=== PATIENT | male | born 1970 | race African-American/Black ===

== ENCOUNTER 2020-09-13 01:38 | Emergency (ER) | payer MEDICAID ==
[2020-09-13 01:07] LABS: ABSOLUTE LYMPHOCYTES (AUTO) 0.9 10^3/uL (0.5-4.7); ABSOLUTE MONOCYTES (AUTO) 0.1 10^3/uL (0.1-1.4); ABSOLUTE NEUT (AUTO) 8.9 10^3/uL (1.7-8.2); BASOPHILS % (AUTO) 0.2 % (0-2); EOSINOPHILS % (AUTO) 0.3 % (0-6); HEMATOCRIT 39.3 % (37.9-51.0); HEMOGLOBIN 13.4 g/dL (13.5-17.0); LYMPHOCYTES % (AUTO) 8.8 % (13-45); MEAN CORPUSCULAR HEMOGLOBIN 29.8 pg (27.0-33.4); MEAN CORPUSCULAR VOLUME 88 fl (80-97); MONOCYTES % (AUTO) 0.9 % (3-13); PLATELET COUNT 265 10^3/uL (150-450); RED BLOOD COUNT 4.49 10^6/uL (4.35-5.55); RED CELL DISTRIBUTION WIDTH 14.3 % (11.5-14.0); SEGMENTED NEUTROPHILS % (AUTO) 89.8 % (42-78)
--- NOTE | 2020-09-13 01:25 | ER Document Report ---
ED General - General Chief Complaint: Probable Seizure Stated Complaint: POSSIBLE SEIZURE Primary Care Provider: LUCIANO CARDOZO [Primary Care Provider] - Follow up as needed - HPI Context: This is a 50-year-old male with a history of quadriplegia and reported seizure disorder that presents to the emergency department for evaluation of seizure activity. Patient's is at the bedside and relates history. states patient has a long history of problems with seizures and the seizures are triggered mainly by pain. states patient has been on Keppra and Vimpat in the past but patient was unable to tolerate the medications. Patient reportedly has history of UTIs. denies known Covid exposures. Further history is limited given that the patient is found to be shaking upon entering the room. mentioned that the patient was at the [facility] earlier tonight and missed his usual dose of extended release morphine. Associated symptoms: denies: Chest pain, Nonproductive cough, Productive cough, Nausea, Vomiting Exacerbated by: Other - See HPI Relieved by: Other - Pain medication Similar symptoms previously: Yes - Related Data Allergies/Adverse Reactions: vancomycin Allergy (Verified 09/13/20 01:50 EDT) Past Medical History - General Information source: Relative - Social History Smoking Status: Unknown if Ever Smoked Lives with: Spouse/Significant other Family History: Reviewed & Not Pertinent Review of Systems - Review of Systems Constitutional: No symptoms reported EENT: No symptoms reported Cardiovascular: No symptoms reported Respiratory: No symptoms reported Gastrointestinal: No symptoms reported Genitourinary: No symptoms reported Male Genitourinary: No symptoms reported Musculoskeletal: No symptoms reported Skin: No symptoms reported Hematologic/Lymphatic: No symptoms reported Neurological/Psychological: Seizure -: Yes All other systems reviewed and negative Physical Exam - Vital signs Vitals: Temp Resp BP Pulse Ox 98.3 F 22 H 153/91 H 98 09/13/20 01:59 EDT 09/13/20 01:59 EDT 09/13/20 01:59 EDT 09/13/20 01:59 EDT - Notes Notes: CONSTITUTIONAL [Vital signs reviewed, patient is shaking all of his extremities and moaning upon entering the room HEAD [Atraumatic, Normocephalic.] EYES [Eyes are normal to inspection, Conjunctiva are normal.] ENT [Ears normal to inspection, Nose examination normal, Mouth normal to inspection.] NECK [Normal ROM, No jugular venous distention, No meningeal signs, no carotid bruit.] RESPIRATORY CHEST [Chest is nontender, Breath sounds normal, No respiratory distress.] CARDIOVASCULAR [RRR, No murmurs, Normal S1 S2, No rub, No gallop.] ABDOMEN [Abdomen is nontender, No pulsatile masses, No other masses, Bowel sounds quiet, No distension, No peritoneal signs, No hernias.] UPPER EXTREMITY [Inspection normal, No cyanosis, No clubbing, No edema, 2+ radial pulses.] LOWER EXTREMITY [Inspection normal, No cyanosis, No clubbing, No edema, No calf tenderness, 2+ f emoral pulses.] NEURO Patient has generalized shaking in his extremities. Patient is nonverbal other than moaning SKIN [Skin is warm, Skin is dry, Skin is normal color.] PSYCHIATRIC Depressed affect. ] Course - Re-evaluation Re-evalutation: 09/13/20 04:44 Patient states he has had some improvement after receiving the pain medication. Patient is now awake and alert and appears to be in no acute distress. Results of ED MSE discussed with patient and patient's spouse. All questions were answered prior to discharge. Emergency signs and symptoms, reasons to return to the emergency department discussed with patient and patient's spouse. - Vital Signs Vital signs: Temp Pulse Resp BP Pulse Ox 98.3 F 18 135/81 H 97 09/13/20 01:59 EDT 09/13/20 03:01 09/13/20 03:01 09/13/20 03:39 - Laboratory Result Diagrams: 09/13/20 01:50 EST 09/13/20 01:50 EST Laboratory results interpreted by me: 09/13/20 01:08 EST Urine Protein 30 H Urine Blood LARGE H Urine Nitrite POSITIVE H Ur Leukocyte Esterase SMALL H - EKG Interpretation by Me Additional EKG results interpreted by me: 09/13/20 03:38 EKG obtained on 09/13/2020 at 00 42 hours was interpreted by this MD. Findings: Normal sinus rhythm, right 88, normal axis, GA interval within normal limits, P waves proceed QRS complexes, QRS complexes appear narrow, QTC 431, there are no obvious patterns of ST segment elevation, depression or reciprocal changes seen to suggest acute myocardial ischemia or infarction. No prior EKG is available for comparison. Impression normal sinus rhythm with nonspecific ST segments. Discharge - Discharge Clinical Impression: History of seizures, Chronic pain disorder UTI (urinary tract infection) Qualifiers: Urinary tract infection type: site unspecified Hematuria presence: with hematuria Qualified Code(s): N39.0 - Urinary tract infection, site not specified; R31.9 - Hematuria, unspecified Condition: Stable Disposition: HOME, SELF-CARE Instructions: Urinary Tract Infection ([facility]), Nitrofurantoin ([facility]) Additional Instructions: Return to the Emergency Department without delay if any worse. HOME CARE INSTRUCTIONS & INFORMATION: Thank you for choosing us for your medical needs. We hope you're satisfied with the care you received. After you leave, you must properly care for your problem and, at the same time, observe its progress. Any condition can change. Some illnesses can change rapidly over hours or days. If your condition worsens, return to the Emergency Department or see your physician promptly. ABOUT YOUR X-RAYS AND EKG'S: If you had an EKG or X-rays taken, they have been read by the Emergency Physician. The X-rays and EKG's will also be read by a Radiologist or Shuttle Car Operator within 24 hours. If discrepancies are noted, you will be notified by telephone. Please be certain the ED has a correct telephone number & address where you can be reached. Also, realize that some fractures or abnormalities do not show up on initial X-rays. If your symptoms continue, see your physician. ABOUT YOUR LABORATORY TEST: If you had laboratory tests, the results have been reviewed by the Emergency Physician. Some test results (for example cultures) may not be available for several days. You will be contacted if any test result shows you need additional treatment. Please be certain the ED has a correct telephone number and address where you can be reached. ABOUT YOUR MEDICATIONS: You will receive instructions on how to take your med icine on the prescription label you receive. Additional information may be provided by the Pharmacy. If you have questions afterwards, call the ED for clarification or further instructions. Some prescribed medications may cause drowsiness. Do not perform tasks such as driving a car or operating machinery without consulting your Pharmacist. If you feel you need a refill of pain medication, your condition will need re-evaluation. Please do not call for a refill of any medication. ABOUT YOUR SIGNATURE: Signature of this document acknowledges to followin. Understanding that you received emergency treatment and that you may be released before al medical problems are known or treated. Please be certain the ED has a correct phone number & address where you can be reached. 2. Acknowledgement that you will arrange for follow-up care as recommended. 3. Authorization for the Emergency Physician to provide information to your follow-up Physician in order to maximize your care. AT ANY TIME, IF YOUR SYMPTOMS CHANGE SIGNIFICANTLY OR WORSEN OR YOU DEVELOP NEW SYMPTOMS, RETURN TO THE EMERGENCY DEPARTMENT IMMEDIATELY FOR RE-EVALUATION. OUR GOAL IS TO PROVIDE EXCELLENT MEDICAL CARE! WE HOPE THAT WE HAVE MET YOUR EXPECTATIONS DURING YOUR EMERGENCY DEPARTMENT VISIT AND THAT YOU FEEL YOU HAVE RECEIVED EXCELLENT CARE! Prescriptions: Nitrofurantoin Monohyd/M-Cryst [Macrobid 100 mg Capsule] 100 mg PO BID 7 Days #14 cap Referrals: LUCIANO CARDOZO [Primary Care Provider] - Follow up as needed YEYO DUMAS MD [HONORARY] - Follow up as needed
[2020-09-13 01:27] LABS: ALBUMIN 3.7 g/dL (3.5-5.0); ALKALINE PHOSPHATASE 85 U/L (38-126); ANION GAP 10 (5-19); ASPARTATE AMINO TRANSFERASE 30 U/L (17-59); BILIRUBIN,DIRECT 0.1 mg/dL (0.0-0.4); BILIRUBIN,TOTAL 0.2 mg/dL (0.2-1.3); BLOOD UREA NITROGEN 13 mg/dL (7-20); CALCIUM 9.3 mg/dL (8.4-10.2); CARBON DIOXIDE 26 mmol/L (22-30); CHLORIDE 104 mmol/L (98-107); GLUCOSE 172 mg/dL (75-110); POTASSIUM 4.8 mmol/L (3.6-5.0); TOTAL PROTEIN 6.8 g/dL (6.3-8.2)
[~2020-09-13 01:38] MED LIST: DIAZEPAM INJ 10 MG/2 ML DISP.SYRIN IV ONE; HYDROMORPHONE HCL INJ/PF 2 MG/ML AMPULE IV ONE
[2020-09-13 01:47] LABS: ALCOHOL < 10 mg/dL (NONE DETECTED)
[2020-09-13] MEDS ORDERED: DIAZEPAM INJ 10 MG/2 ML DISP.SYRIN IV ONE (01:47)
[2020-09-13] MEDS ORDERED: HYDROMORPHONE HCL INJ/PF 2 MG/ML AMPULE IV ONE ×2 (01:48→04:43)
[2020-09-13 01:52] LABS: URINE AMPHETAMINES SCREEN NEGATIVE; URINE BARBITURATES SCREEN NEGATIVE; URINE COCAINE SCREEN NEGATIVE; URINE MARIJUANA (THC) SCREEN NEGATIVE; URINE METHADONE SCREEN NEGATIVE; URINE PHENCYCLIDINE SCREEN NEGATIVE
[2020-09-13 01:53] LABS: URINE BENZODIAZEPINES SCREEN UNCONFIRMED POSITIVE
[2020-09-13 02:04] LABS: APPEARANCE,URINE SLIGHTLY-CLOUDY; BILIRUBIN,URINE NEGATIVE (NEGATIVE); COLOR,URINE YELLOW; GLUCOSE, URINE NEGATIVE (NEGATIVE); KETONES,URINE NEGATIVE (NEGATIVE); LEUKOCYTE ESTERASE,URINE SMALL (NEGATIVE); NITRITE,URINE POSITIVE (NEGATIVE); PROTEIN,URINE 30 mg/dL (NEGATIVE); URINE SPECIFIC GRAVITY 1.025; UROBILINOGEN,URINE NEGATIVE mg/dL (<2.0)
[2020-09-13] MEDS ORDERED: NITROFURANTOIN MONOHYD/M-CRYST 100 MG CAPSULE PO ONE (04:43)
[2020-09-13 05:31] VITALS: BP 132/82
--- NOTE | 2020-09-13 08:40 | EKG REPORT ---
SEVERITY:- BORDERLINE ECG - SINUS RHYTHM PROBABLE LEFT ATRIAL ABNORMALITY : Confirmed by: Jaspal Flanagan MD 13-Sep-2020 08:38:59
== END 2020-09-13 05:25 | disposition home or self-care (01) ==
LOC: ER 01:38
DX: N39.0 Urinary tract infection, site not specified (principal); R31.9 Hematuria, unspecified; R56.9 Unspecified convulsions; G89.4 Chronic pain syndrome; Z87.440 Personal history of urinary (tract) infections
CPT/HCPCS: 93005; 96376; 99284; 96374; 96375; 36415; 82962; 80307 ×2; 83735; 85025; 80053; 81001; 93010; J3360; J1170; J3490; J8499